=== PATIENT | female | born 1940 | race Caucasian/White ===

== ENCOUNTER 2022-06-21 10:03 | Emergency (ER) | payer MEDICARE, SELFPAY ==
[2022-06-21 09:55] VITALS: BP 159/70; PULSE 60; RESP 18; TEMP 36.6; O2SAT 98; BMI 22.8
--- NOTE | 2022-06-21 10:03 | DI.CT.S_ITS ---
PROCEDURE: CT HEAD/BRAIN WO CON INDICATIONS: left weakness now improved TECHNIQUE: Noncontrast 4.5 mm thick angled axial sections acquired from the foramen magnum to the vertex, with coronal and sagittal reformats. For radiation dose reduction, the following was used: automated exposure control, adjustment of mA and/or kV according to patient size. COMPARISON: None. FINDINGS: Image quality: Excellent. CSF spaces: Basal cisterns are patent. No extra-axial fluid collections. The ventricles are symmetric in size and shape. Brain: No intracranial bleeds or masses. There is cerebral volume loss for age, with resultant ventricular and sulcal prominence. There are periventricular and deep white matter chronic small vessel ischemic changes. There is intracranial internal carotid artery atherosclerosis. Skull and face: Calvarium and visualized facial bones appear intact, without suspicious lesions. Sinuses: Mild mucosal thickening in left maxillary sinus is seen. Bilateral mastoids are well aerated. IMPRESSION: 1. No CT evidence of acute intracranial abnormalities. 2. Age related volume loss and mild white matter chronic small vessel ischemic changes. Dictated by: Jomar Donato M.D. on 06/21/2022 at 10:24 Approved by: Jomar Donato M.D. on 06/21/2022 at 10:25
--- NOTE | 2022-06-21 10:03 | DI.CT.S_ITS ---
PROCEDURE: CT ANGIO HEAD AND NECK INDICATIONS: left weakness now resolved TECHNIQUE: After the administration of intravenous contrast, 1 mm thick sections acquired from the aortic arch through the [place] of [place]. Post-contrast 4.5 mm thick sections then re-acquired from the foramen magnum to the vertex. For radiation dose reduction, the following was used: automated exposure control, adjustment of mA and/or kV according to patient size. COMPARISON: None. FINDINGS: HEAD CT ANGIOGRAPHY: Anterior circulation: Intracranial internal carotid arteries are normal in size and flow. 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 Additionally, there is a critical pre occlusive stenosis of the right proximal A2 DARLENE . The flow within the middle cerebral arteries is normal and symmetric. The anterior communicating artery is seen. No aneurysms are seen. Posterior circulation: Visualized portions of the vertebral arteries demonstrate normal caliber, and join to form a normal appearing basilar artery. Basilar artery terminates in the superior cerebellar arteries. 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 The P2 segment is supplied by a widely patent posterior communicating artery. Remainder of the distal vasculature unremarkable. No aneurysms are seen. NECK CT ANGIOGRAPHY: Carotid system: The great vessels demonstrate a conventional anatomy as they arise from the aortic arch. The origins of the common carotid arteries appear patent. The common carotid arteries demonstrate normal caliber and courses. Calcified atherosclerotic plaque in the proximal left ICA noted with approximately 10% stenosis utilizing NASCET criteria. Posterior circulation: The origins of the vertebral arteries both appear widely patent. The more superior extracranial portions of both vertebral arteries also demonstrate normal courses and calibers. They join to form a normal appearing basilar artery. Soft tissues: Multilevel degenerative disc disease and arthropathy in cervical spine Bones: No suspicious bony lesions. Visualized cervical spine appears normally aligned. IMPRESSION: 1. 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 2. 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 3. Mild calcified atherosclerotic plaque in the proximal left ICA without hemodynamically significant stenosis Any quantitative measurements of stenosis were performed using NASCET criteria. Approved by: Stef Ba M.D. on 06/21/2022 at 10:23
[2022-06-21 10:13] LABS: Add Manual Diff / Slide Review NO; Basophils Absolute Auto 0 /uL (0-100); Basophils Percent Auto 0.2 % (0-2); Eosinophils Absolute Auto 0 /uL (0-450); Eosinophils Percent Auto 0.2 % (2-4); Hematocrit 39.2 % (36-46); Hemoglobin 13.1 g/dL (12.0-16.0); Lymphocytes Absolute Auto 800 /uL (1100-4500); Mean Corpuscular HGB Conc 33.5 % (30-36); Mean Corpuscular Hemoglobin 32.1 PG (26-34); Mean Corpuscular Volume 95.8 fL (80-100); Monocytes Absolute Auto 700 /uL (0-900); Neutrophils Absolute Auto 5300 /uL (1500-7000); Neutrophils Percent Auto 77.6 % (50-75); Platelet Count 150 X10^3/uL (150-400); Red Cell Distribution Width 11.9 % (11.6-14.8); White Blood Cell Count 6.8 X10^3/uL (4.5-11.0)
[2022-06-21 10:18] LABS: INR 1.1 (0.9-1.3); Prothrombin Time 12.8 SECONDS (10.1-12.7)
[2022-06-21 10:21] LABS: PTT Partial Thromboplastin Tim 29 SECONDS (26-36)
[2022-06-21 10:24] LABS: Alanine Aminotransferase 24 IU/L (<35); Albumin Globulin Ratio 1.1 (1.0-2.8); Alkaline Phosphatase 83 U/L (38-126); Aspartate Aminotransferase 32 IU/L (14-36); BUN Creatinine Ratio 22.2 (6-22); Bilirubin Total 0.6 mg/dL (0.2-1.3); Blood Urea Nitrogen 16 mg/dL (7-17); Calcium 8.9 mg/dL (8.4-10.2); Carbon Dioxide 28 mmol/L (22-32); Chloride 101 mmol/L (98-107); Creatine Kinase 69 U/L (30-135); Estimated Glomerular Filt Rate > 60 mL/min (>60); Ethanol (ETOH) < 10 mg/dL; Globulin 3.5 g/dL (1.7-4.1); Glucose 135 mg/dL (80-110); HEMOLYSIS < 15 (0-50); Potassium 3.9 mmol/L (3.4-5.1); Sodium 136 mmol/L (137-145); Total Protein 7.5 g/dL (6.3-8.2)
--- NOTE | 2022-06-21 10:25 | ED_ITS ---
HPI - Syncope General Chief Complaint: Altered Mental Status Stated Complaint: Code Stroke, L side Def. Time Seen by Provider: 06/21/22 10:14 History of Present Illness HPI narrative: Patient is a 82-year-old female history of atrial fibrillation, CVA presenting today after syncopal episode. EMS was concerned for a stroke. She is visiting from [facility] in on June 15 this morning she was not feeling her normal self. She said last night she had a couple loose bowel movements she went call it diarrhea but it was abnormal for her. She did not eat as much breakfast this morning. 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 Daughter then states that she very cool diaphoretic and passed out for a couple minutes at which point EMS was called. This all is happening around 930. EMS arrived found her hypotensive and unable to move her left arm. During he ambulance ride she started moving everything and talking. She is no slurring of speech she is no focal deficits upon initial arrival. She was taken straight to CT. It sounds as though patient has a Watchman in place she was previously on Eliquis but now only takes clopidogrel. No specific reason why she has a Watchman her doctor just recommended it. But no history of significant bleeding. She now is feeling a bit better. She has no chest pain no palpitations no shortness of breath. She does have a mild cough but no fevers. Review of Systems Review of Systems ROS Unobtainable: All systems reviewed & are unremarkable except as noted in HPI and below Patient History Social History Smoking Status: Never smoker Exam Initial Vital Signs Initial Vital Signs: Vital Signs Temperature 98 F 06/21/22 09:55 Pulse Rate 60 06/21/22 09:55 Respiratory Rate 18 06/21/22 09:55 Blood Pressure 159/70 H 06/21/22 09:55 Pulse Oximetry 98 06/21/22 09:55 Oxygen Delivery Method 06/21/22 09:55 GENERAL: Alert pleasant 82-year-old female and in no acute distress. HEENT: Head atraumatic,EOMI, pupils reactive, face symmetric, moist mucous membranes CARDIOVASCULAR: Regular rate and rhythm without murmurs, rubs or gallops. RESPIRATORY: Breath sounds equal bilaterally, no wheezes rales or rhonchi. ABDOMEN: Soft, nontender. Normoactive bowel sounds all 4 quadrants. No guarding or rebound. EXTREMITIES: Normal range of motion, no clubbing or edema. Neurovascularly intact NEUROLOGICAL: Alert and oriented x4.Normal gait and speech. Cranial nerves II through XII grossly intact. Good dxfezx-fh-ijwi, good hdke-fp-dujp, strength equal bilaterally, no dysarthria or aphasia, sensation in tact to soft touch bilaterally, no visual changes, no facial droop SKIN: Warm, dry, no laceration, no petechiae, no rashes or lesions. Scores NIH Stroke Scale Level of Conciousness: Alert, keenly responsive Ask month/age: Answers both questions correctly. Open/close eyes, close hand: Performs both tasks correctly Best gaze horizontal: Normal Visual corrigan: No visual loss Facial palsy: Normal symetrical movement Left arm drift: No drift for full 10 sec Right arm drift: No drift for full 10 sec Left leg drift: No drift for full 5 sec Right leg drift: No drift for full 5 sec Limb ataxia: Absent Sensory on face/arms/legs: Normal, no sensory loss Best language: No aphasia, normal Dysarthria: Normal Extinction or inattention: No abnormality Total NIH Stroke scale score: 0 Course Orders Ordered: ED Orders 06/21/22 09:45 Complete Blood Count AUTO DIFF Stat Comprehensive Metabolic Panel Stat Ethanol (ETOH) Stat Partial Thromboplastin Time Stat Prothrombin Time INR Stat Troponin & CK Cardiac Panel Stat 06/21/22 10:03 CT angio head and neck Stat CT head/brain wo con Stat Urinalysis and Microscopic Stat Urine Drug Screen, Rapid Stat EKG-12 Lead Stat 06/21/22 10:15 COVID19 -Nasal RAPID/Pre-Proc Stat 06/21/22 10:27 Chest [XR chest 1V] Stat Vital Signs Vital signs: Vital Signs - 8 hr 06/21/22 13:09 Pulse Rate 65 Respiratory Rate 18 Blood Pressure 133/60 Pulse Oximetry 99 MDM - Syncope Lab Data Result diagrams: 06/21/22 09:45 06/21/22 09:45 Labs: Lab Results 06/21/22 06/21/22 06/21/22 Range/Units 09:45 09:45 09:45 WBC 6.8 (4.5-11.0) X10^3/uL RBC 4.10 (4.0-5.2) X10^6/uL Hgb 13.1 (12.0-16.0) g/dL Hct 39.2 (36-46) % MCV 95.8 (80-100) fL MCH 32.1 (26-34) PG MCHC 33.5 (30-36) % RDW 11.9 (11.6-14.8) % Plt Count 150 (150-400) X10^3/uL Neut % (Auto) 77.6 H (50-75) % Lymph % (Auto) 12.0 L (25-40) % Branch % (Auto) 10.0 (3-14) % Eos % (Auto) 0.2 L (2-4) % Baso % (Auto) 0.2 (0-2) % Neut # (Auto) 5300 (7339-0694) /uL Lymph # (Auto) 800 L (3940-1979) /uL Branch # (Auto) 700 (0-900) /uL Eos # (Auto) 0 (0-450) /uL Baso # (Auto) 0 (0-100) /uL PT 12.8 H (10.1-12.7) SECONDS INR 1.1 (0.9-1.3) APTT 29 (26-36) SECONDS Sodium 136 L (137-145) mmol/L Potassium 3.9 (3.4-5.1) mmol/L Chloride 101 (98-107) mmol/L Carbon Dioxide 28 (22-32) mmol/L BUN 16 (7-17) mg/dL Creatinine 0.72 (0.52-1.04) mg/dL Estimated GFR > 60 (>60) mL/min BUN/Creatinine Ratio 22.2 H (6-22) Glucose 135 H (80-110) mg/dL Calcium 8.9 (8.4-10.2) mg/dL Total Bilirubin 0.6 (0.2-1.3) mg/dL AST 32 (14-36) IU/L ALT 24 (<35) IU/L Alkaline Phosphatase 83 (38-126) U/L Total Creatine Kinase 69 (30-135) U/L CK-MB (CK-2) TNP CK-MB (CK-2) Rel Index TNP Troponin I 0.013 (0.01-0.034) ng/mL Total Protein 7.5 (6.3-8.2) g/dL Albumin 4.0 (3.5-5.0) g/dL Globulin 3.5 (1.7-4.1) g/dL Albumin/Globulin Ratio 1.1 (1.0-2.8) Ethyl Alcohol < 10 ( - 10) mg/dL SARS-CoV-2 (PCR) (Negative) 06/21/22 Range/Units 10:15 WBC (4.5-11.0) X10^3/uL RBC (4.0-5.2) X10^6/uL Hgb (12.0-16.0) g/dL Hct (36-46) % MCV (80-100) fL MCH (26-34) PG MCHC (30-36) % RDW (11.6-14.8) % Plt Count (150-400) X10^3/uL Neut % (Auto) (50-75) % Lymph % (Auto) (25-40) % Branch % (Auto) (3-14) % Eos % (Auto) (2-4) % Baso % (Auto) (0-2) % Neut # (Auto) (1874-6886) /uL Lymph # (Auto) (2736-8070) /uL Branch # (Auto) (0-900) /uL Eos # (Auto) (0-450) /uL Baso # (Auto) (0-100) /uL PT (10.1-12.7) SECONDS INR (0.9-1.3) APTT (26-36) SECONDS Sodium (137-145) mmol/L Potassium (3.4-5.1) mmol/L Chloride (98-107) mmol/L Carbon Dioxide (22-32) mmol/L BUN (7-17) mg/dL Creatinine (0.52-1.04) mg/dL Estimated GFR (>60) mL/min BUN/Creatinine Ratio (6-22) Glucose (80-110) mg/dL Calcium (8.4-10.2) mg/dL Total Bilirubin (0.2-1.3) mg/dL AST (14-36) IU/L ALT (<35) IU/L Alkaline Phosphatase (38-126) U/L Total Creatine Kinase (30-135) U/L CK-MB (CK-2) CK-MB (CK-2) Rel Index Troponin I (0.01-0.034) ng/mL Total Protein (6.3-8.2) g/dL Albumin (3.5-5.0) g/dL Globulin (1.7-4.1) g/dL Albumin/Globulin Ratio (1.0-2.8) Ethyl Alcohol ( - 10) mg/dL SARS-CoV-2 (PCR) Negative (Negative) Point of Care Testing Glucose POC 135 Urine Dip Bedside Urine Glucose Negative Bedside Urine Bilirubin - Negative Bedside Urine Ketone - Negative Urine Specific [place] 1.005 Bedside Urine Occult Blood + Bedside Urine pH 8.5 Bedside Urine Protein +/- 15 Bedside Urine Urobilinogen - Negative Bedside Urine Nitrite - Negative Bedside Urine Leukocytes - Negative Esterase Imaging Data CT scan - head: Radiologist's Impression: SUSHILA Covarrubias [id number] CT Scan Report Signed Patient: Aleja Syed MR#: [id number] : 1940 Acct:[id number] Age/Sex: 82 / F Date of Service: 06/21/22 Loc: ED Accession Number: [id number] ?? Procedure: CT head/brain wo con Ordering Provider: Amada Baum D.O. PROCEDURE:? CT HEAD/BRAIN WO CON ? INDICATIONS:? left weakness now improved ? TECHNIQUE:? Noncontrast 4.5 mm thick angled axial sections acquired from the foramen magnum to the vertex, with coronal and sagittal reformats.? For radiation dose reduction, the following was used:? automated exposure control, adjustment of mA and/or kV according to patient size.? ? COMPARISON:? None. ? FINDINGS:? Image quality:? Excellent.? ? CSF spaces:? Basal cisterns are patent.? No extra-axial fluid collections.? The ventricles are symmetric in size and shape.? ? Brain:? No intracranial bleeds or masses.? There is cerebral volume loss for age, with resultant ventricular and sulcal prominence.? There are periventricular and deep white matter chronic small vessel ischemic changes.? There is intracranial internal carotid artery atherosclerosis.? ? Skull and face:? Calvarium and visualized facial bones appear intact, without suspicious lesions.? ? Sinuses:? Mild mucosal thickening in left maxillary sinus is seen.? Bilateral mastoids are well aerated. ? IMPRESSION:? 1. No CT evidence of acute intracranial abnormalities. 2. Age related volume loss and mild white matter chronic small vessel ischemic changes.? ? ? Dictated by: Jomar Donato M.D. on 06/21/2022 at 10:24 ? ? CTA - brain/neck: Radiologist's Impression: CT Scan Report Signed Patient: Aleja Syed MR#: [id number] : 1940 Acct:[id number] Age/Sex: 82 / F Date of Service: 06/21/22 Loc: ED Accession Number: [id number] ?? Procedure: CT angio head and neck Ordering Provider: Amada Baum D.O. PROCEDURE:? CT ANGIO HEAD AND NECK ? INDICATIONS:? left weakness now resolved ? TECHNIQUE:? ? After the administration of intravenous contrast, 1 mm thick sections acquired from the aortic arch through the [place] of [place].? Post-contrast 4.5 mm thick sections then re-acquired from the foramen magnum to the vertex.? For radiation dose reduction, the following was used:? automated exposure control, adjustment of mA and/or kV according to patient size.? ? COMPARISON:? None. ? FINDINGS:? ? HEAD CT ANGIOGRAPHY:? Anterior circulation:? Intracranial internal carotid arteries are normal in size and flow.? 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 Additionally, there is a critical pre occlusive stenosis of the right proximal A2 DARLENE .? The flow within the middle cerebral arteries is normal and symmetric.? The anterior communicating artery is seen.? No aneurysms are seen.? ? Posterior circulation:? Visualized portions of the vertebral arteries demonstrate normal caliber, and join to form a normal appearing basilar artery.? Basilar artery terminates in the superior cerebellar arteries.? Hypoplasia/aplasia of the bilateral P1 INSPECTOR ELEVATORS noted. The P2 segment is supplied by a widely patent posterior communicating artery. Remainder of the distal vasculature unremarkable.? No aneurysms are seen.? ? NECK CT ANGIOGRAPHY:? Carotid system:? The great vessels demonstrate a conventional anatomy as they arise from the aortic arch.? The origins of the common carotid arteries appear patent.? The common carotid arteries demonstrate normal caliber and courses.? Calcified atherosclerotic plaque in the proximal left ICA noted with approximately 10% stenosis utilizing NASCET criteria. ? Posterior circulation:? The origins of the vertebral arteries both appear widely patent.? The more superior extracranial portions of both vertebral arteries also demonstrate normal courses and calibers.? They join to form a normal appearing basilar artery.? ? Soft tissues:? Multilevel degenerative disc disease and arthropathy in cervical spine ? Bones:? No suspicious bony lesions.? Visualized cervical spine appears normally aligned.? IMPRESSION:? ? 1. 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 ? 2. 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 ? 3. Mild calcified atherosclerotic plaque in the proximal left ICA without hemodynamically significant stenosis? ? Any quantitative measurements of stenosis were performed using NASCET criteria.? Approved by: Stef Ba M.D. on 06/21/2022 at 10:23? ECG Data Interpretation: Sinus rhythm rate 57 MD interval 122 QRS [address] changes [facility] making narrative: Patient 82-year-old female history of CVA with atrial fibrillation currently in sinus and a Watchman on clopidogrel presents today after a syncopal episode with brief left-sided weakness. Upon arrival she is NIH stroke scale of 0. Blood work is overall reassuring. CT angio does show possible critical preocclusive stenosis of the right proximal A2 DARLENE and concern for left ICA stenosis as well. She does not have any large vessel occlusion symptoms not a tPA candidate because symptoms improved quickly. 12:35-Dr. Lynn [facility] stroke doctor reviewed imaging updated on symptoms and test results states that patient is not symptomatic from the left carotid stenosis or the DARLENE he says also it is not really fixable. Agrees with outpatient follow-up At this time patient daughter updated on symptoms and test results. Agree with follow-up patient is given results and CT imaging so that she can follow up at home in [place]. No need for any come here in the ED. He is back to baseline. Discharge Plan Departure Patient Disposition: Home Clinical Impression: Syncope Instructions: DI for Syncope in Adults (Fainting) Activity Restrictions/Additional Instructions: *You have been diagnosed with syncope *What to do: At this time you do have some narrowing of your left carotid which should be evaluated when you get home with your doctors. Today there is no evidence of stroke Stay hydrated eat frequently *Continue to take medications as directed Continue clopidogrel and all medication *Follow up with your primary care provider in 2-3 days or call [phone] *Return to ER if you should have recurrent episode of passing out, chest pain, shortness of breath [or] any new, worsening or concerning symptoms Stand Alone Forms: Patient Portal/API
--- NOTE | 2022-06-21 10:27 | DI.RAD.S_ITS ---
PROCEDURE: XR CHEST 1V INDICATIONS: syncope TECHNIQUE: One view of the chest was acquired. COMPARISON: None. FINDINGS: Surgical changes and devices: None. Lungs and pleura: Lungs are clear. No pleural effusions or pneumothorax. Mediastinum: Mediastinal contours appear normal. Heart size is enlarged. Bones and chest wall: No suspicious bony lesions. Overlying soft tissues appear unremarkable. IMPRESSION: Cardiomegaly or pericardial effusion. No acute pulmonary findings. Dictated by: Tiffanie Devine M.D. on 06/21/2022 at 11:26 Approved by: Tiffanie Devine M.D. on 06/21/2022 at 11:26
[2022-06-21 10:30] VITALS: BP 142/67; PULSE 57; RESP 18; O2SAT 100
[2022-06-21 10:35] LABS: Troponin I 0.013 ng/mL (0.01-0.034)
[2022-06-21 10:39] LABS: COVID19 -Nasal RAPID Negative (Negative)
[2022-06-21 11:00] VITALS: BP 122/60; PULSE 60; RESP 18; O2SAT 95
[2022-06-21 11:30] VITALS: BP 146/64; PULSE 60; RESP 18; O2SAT 97
[2022-06-21 12:00] VITALS: BP 133/62; PULSE 61; RESP 18; TEMP 36.6; O2SAT 97
[2022-06-21 13:09] VITALS: BP 133/60; PULSE 65; RESP 18; O2SAT 99
== END 2022-06-21 13:13 | disposition home or self-care (01) ==
PROVIDERS: Emergency Provider Emergency Medicine
DX: R55 Syncope and collapse (principal); R42 Dizziness and giddiness; R05.9 Cough, unspecified; I95.9 Hypotension, unspecified; Z20.822 Contact with and (suspected) exposure to COVID-19
CPT/HCPCS: 36415; 70450; 70496; 70498; 71045; 80053; 80320; 81003; 82550; 82962; 84484; 85025; 85610; 85730; 87635; 93005; 99284; 99285; C9803; Q9967